=== PATIENT | male | born 1930 | race Caucasian/White ===

== ENCOUNTER 2017-05-01 02:41 | Inpatient (IN) | payer OTHER ==
--- NOTE | 2017-05-01 02:59 | EDPHY ---
H & P Stated Complaint: mechanical fall - unknown down time, denies LOC Time Seen by Provider: 05/01/17 02:47 HPI/ROS: Chief Complaint: Fall HPI: 87-year-old male from [facility] with a history of vascular dementia presenting status post fall. Patient states that he had a mechanical fall. He is complaining of pain in his right thigh. Patient denies hitting his head. No loss of consciousness. Denies any other injuries. He has not been ambulating since the fall. Patient is a poor historian given his dementia. ROS: 10 point Review of Systems is negative except as noted in the HPI. PMH: Dementia Social History: No smoking, no alcohol, no recreational drug use Family History: non-contributory Physical Exam: Gen: Awake, Alert, Airway Intact HEENT: Head: Atraumatic Eyes: PERRLA, EOMI Nose: No epistaxis Mouth: Normal dentition, Airway patent Face: No deformity Neck: non-tender, no stepoff, Full ROM without pain Chest: non-tender, lungs CTA Heart: normal heart tones Abd: soft, non-tender, atraumatic Pelvis: non-tender, stable to AP and Lateral compression Back: atraumatic, no midline tenderness Ext: Arms are negative. Left leg is normal, full range of motion without pain and nontender, patient is holding his right leg in flexion and internal rotation. He is clutching his left proximal thigh. There is no obvious bony deformity. He has decreased range of motion secondary to pain. Knee is nontender. Recheck fevers nontender without deformity. Ankles nontender, full range of motion. He has 2+ dorsalis pedis pulses. Capillary refills less than 2 seconds. Skin: no rash Neuro: CN II-XII intact, Strength 5/5 in all extremities, sensation intact in all extremities - Personal History Current Tetanus/Diphtheria Vaccine: Unsure - Medical/Surgical History Hx Asthma: No Hx Chronic Respiratory Disease: No Hx Diabetes: No Hx Cardiac Disease: No Hx Renal Disease: No Hx Cirrhosis: No Hx Alcoholism: No Hx HIV/AIDS: No Other PMH: dementia, HTN - Social History Smoking Status: Unknown if ever smoked Constitutional: Initial Vital Signs Temperature (C) 36.7 C 05/01/17 02:51 Heart Rate 53 L 05/01/17 02:51 Respiratory Rate 20 05/01/17 02:51 Blood Pressure 167/74 H 05/01/17 02:51 O2 Sat (%) 99 05/01/17 02:51 O2 Delivery Mode Room Air Allergies/Adverse Reactions: No Known Allergies Allergy (Unverified 05/01/17 02:55) Home Medications: Medication Instructions Recorded Exelon 05/01/17 Melatonin 05/01/17 VENLAFAXINE HCL 05/01/17 Medical Decision Making - Diagnostics Imaging Results: Right hip x-ray shows a deformity of the lesser trochanter with questionable cortical involvement. Per my interpretation. CT scan of the right hip shows a comminuted intertrochanteric fracture per Dr. Barrera. ED Course/Re-evaluation: 87-year-old male status post mechanical fall with right hip fracture. I have discussed with Dr. Barba, hospitalist. He will admit to his service. I have paged Dr. Argueta, orthopedics. Patient's pain is controlled not required medicine here. Chest x-ray, ECG, and bloods have been ordered. - Data Points Medications Given: Discontinued Medications Ondansetron HCl (Zofran) 4 mg IVP EDNOW ONE Stop: 05/01/17 04:46 Last Admin: 05/01/17 04:45 Dose: 4 mg Departure - Departure Disposition: [facility] Inpatient Acute Clinical Impression: Hip fracture Condition: Fair Referrals: Rainer Galeas MD [Primary Care Provider] - As per Instructions
[2017-05-01] MEDS ORDERED: ONDANSETRON 4 MG/2 ML VIAL ONE ×2 (04:42→16:40)
[2017-05-01] MEDS ORDERED: ONDANSETRON 4 MG/2 ML VIAL IVP ONE (04:45)
[2017-05-01] MEDS ORDERED: ONDANSETRON 4 MG/2 ML VIAL IVP PRN ×2 (05:14→21:01)
[2017-05-01] MEDS ORDERED: ACETAMINOPHEN 325 MG TAB PO PRN (05:14)
[2017-05-01] MEDS ORDERED: oxyCODONE IR 5 MG TAB PO PRN (05:14)
[2017-05-01] MEDS ORDERED: ONDANSETRON DISINTEGRATING 4 MG TAB PO PRN (05:14)
--- NOTE | 2017-05-01 05:30 | CPEKG ---
Heart Rate: 51 RR Interval: 1176 P-R Interval: 192 QRSD Interval: 160 QT Interval: 500 QTC Interval: 461 P [place]: 50 QRS [place]: 109 T Wave [place]: 10 EKG Severity - ABNORMAL ECG - EKG Impression: SINUS RHYTHM EKG Impression: RBBB AND LPFB Electronically Signed By: Loy Granados 01-May-2017 06:24:23
[2017-05-01 05:32] LABS: PLATELET COUNT 199 10^3/uL (150-400)
--- NOTE | 2017-05-01 06:00 | PDGENHP ---
History and Physical - Chief Complaint Fall, hip fracture - History of Present Illness 87 yo M w/ dementia presents from SNF after fall. Upon arrival to the ED he was found to have a R-sided hip fracture. Patient has fairly advanced dementia and is not able to participate in HPI significantly. He is A&Ox1 on my evaluation and complaining only of R hip pain. He remembers falling while trying to roll out of bed at his nursing facility, denies LOC. History Information - Allergies/Home Medication List Allergies/Adverse Reactions: No Known Allergies Allergy (Unverified 05/01/17 02:55) Home Medications: Exelon 05/01/17 [Last Taken Unknown] Melatonin 05/01/17 [Last Taken Unknown] VENLAFAXINE HCL 05/01/17 [Last Taken Unknown] I have personally reviewed and updated: family history, medical history - Past Medical History dementia - Family History Additional family history: Asked, unable to provide - Social History Smoking Status: Unknown if ever smoked Review of Systems Review of Systems: ROS: 10pt was reviewed & negative except for what was stated in HPI & below Physical Exam Physical Exam: Temp Pulse Resp BP Pulse Ox 36.6 C 53 L 18 124/69 H 96 05/01/17 05:55 05/01/17 05:55 05/01/17 05:55 05/01/17 05:55 05/01/17 05:55 Constitutional: no apparent distress, chronically ill appearing Eyes: PERRL, anicteric sclera Ears, Nose, Mouth, Throat: moist mucous membranes, no oral mucosal ulcers Cardiovascular: regular rate and rhythym, no murmur, rub, or gallop Respiratory: no respiratory distress, no rales or rhonchi Gastrointestinal: normoactive bowel sounds, soft, non-tender abdomen Skin: warm, normal color Musculoskeletal: other (TTP overlying R hip) Neurologic: sensation intact bilaterally, other (A&Ox1) Psychiatric: poor insight, poor memory Lab Data & Imaging Review 05/01/17 05:18 05/01/17 05:18 WBC 10.52 10^3/uL (3.80-9.50) H 05/01/17 05:18 RBC 4.03 10^6/uL (4.40-6.38) L 05/01/17 05:18 Hgb 13.4 g/dL (13.7-17.5) L 05/01/17 05:18 Hct 38.7 % (40.0-51.0) L 05/01/17 05:18 MCV 96.0 fL (81.5-99.8) 05/01/17 05:18 MCH 33.3 pg (27.9-34.1) 05/01/17 05:18 MCHC 34.6 g/dL (32.4-36.7) 05/01/17 05:18 RDW 13.4 % (11.5-15.2) 05/01/17 05:18 Plt Count 199 10^3/uL (150-400) 05/01/17 05:18 MPV 10.3 fL (8.7-11.7) 05/01/17 05:18 Neut % (Auto) 69.7 % (39.3-74.2) 05/01/17 05:18 Lymph % (Auto) 21.2 % (15.0-45.0) 05/01/17 05:18 Kimble % (Auto) 6.5 % (4.5-13.0) 05/01/17 05:18 Eos % (Auto) 1.8 % (0.6-7.6) 05/01/17 05:18 Baso % (Auto) 0.4 % (0.3-1.7) 05/01/17 05:18 Nucleat RBC Rel Count 0.0 % (0.0-0.2) 05/01/17 05:18 Absolute Neuts (auto) 7.34 10^3/uL (1.70-6.50) H 05/01/17 05:18 Absolute Lymphs (auto) 2.23 10^3/uL (1.00-3.00) 05/01/17 05:18 Absolute Monos (auto) 0.68 10^3/uL (0.30-0.80) 05/01/17 05:18 Absolute Eos (auto) 0.19 10^3/uL (0.03-0.40) 05/01/17 05:18 Absolute Basos (auto) 0.04 10^3/uL (0.02-0.10) 05/01/17 05:18 Absolute Nucleated RBC 0.00 10^3/uL (0-0.01) 05/01/17 05:18 Immature Gran % 0.4 % (0.0-1.1) 05/01/17 05:18 Immature Gran # 0.04 10^3/uL (0.00-0.10) 05/01/17 05:18 Sodium 142 mEq/L (134-144) 05/01/17 05:18 Potassium 5.3 mEq/L (3.5-5.2) H 05/01/17 05:18 Chloride 100 mEq/L (97-110) 05/01/17 05:18 Carbon Dioxide 25 mEq/l (22-31) 05/01/17 05:18 Anion Gap 17 mEq/L (8-16) H 05/01/17 05:18 BUN 16 mg/dL (7-23) 05/01/17 05:18 Creatinine 0.7 mg/dL (0.7-1.3) 05/01/17 05:18 Estimated GFR > 60 05/01/17 05:18 Glucose 90 mg/dL (70-100) 05/01/17 05:18 Calcium 9.5 mg/dL (8.5-10.4) 05/01/17 05:18 Specimen Hemolysis 189 05/01/17 05:18 Imaging Review: Comminuted RT intertrochanter fx w/ min displaced lesser and greater troch fragments. Assessment & Plan Assessment: 87 yo M w/ dementia presents after fall w/ hip fracture. Plan: 1. R intertrochanteric hip fracture - S/p mechanical fall. Orthopedics consulted in the ED, will see patient this morning. - Maintain NPO - Pain control with morphine and oxycodone PRN 2. Dementia - Appears fairly advanced, although may be worsened by pain medications currently. A&Ox1 on my evaluation. Diet - NPO Code - Full, patient unable to participate in this conversation. Will await clarification from facility and family. Ppx - SCDs Dispo - Admit to observation status pending orthopedic consultation
--- NOTE | 2017-05-01 08:38 | HOSPPROG ---
Hospitalist Progress Note Assessment/Plan: 87 yo M w/ dementia presents after fall w/ hip fracture. *R intertrochanteric hip fracture - S/p mechanical fall. Orthopedics consulted in the ED - Maintain NPO - Pain control with morphine and oxycodone PRN *gait instability *dementia -fairly advanced *Hyperkalemia -repeat labs in a.m -ordered IV normal saline *Plan: likely OR later today/ will get repeat labs in a.m. / He will require > 2 midnight stay due to the above/ will likely be in OR today Subjective: Antonio is confused/ no c/o pain until I palpated his hip. Objective: Vital Signs Temp Pulse Resp BP Pulse Ox 36.6 C 56 L 16 140/62 H 97 05/01/17 07:15 05/01/17 07:15 05/01/17 07:15 05/01/17 07:15 05/01/17 07:15 Laboratory Results 05/01/17 05:18 05/01/17 05:18 - Physical Exam Constitutional: chronically ill appearing, uncomfortable, other (thin) Ears, Nose, Mouth, Throat: hearing normal Cardiovascular: regular rate and rhythym Respiratory: no respiratory distress Gastrointestinal: normoactive bowel sounds Skin: warm Musculoskeletal: other (right leg shortened) Neurologic: other (alert, but confused) Psychiatric: poor judgement, poor memory ICD10 Worksheet Patient Problems: Problems Problem Status Onset Hip fracture Acute
[2017-05-01] MEDS ORDERED: CYANO/VITAMIN B12 1000 MCG TAB ONE (10:51)
[2017-05-01] MEDS: VENLAFAXINE HCL 25 MG TAB PO SCH ×2 (10:53→23:37)
[2017-05-01] MEDS: CYANO/VITAMIN B12 1000 MCG TAB PO SCH (10:53)
[2017-05-01] MEDS: Rivastigmine [Exelon 4.6mg/24 Hours] 1 EACH TD SCH ×2 (11:02→13:15)
[2017-05-01] MEDS: NS 1,000 ML IV SCH (12:16)
[2017-05-01] MEDS ORDERED: BUPIVACAINE 0.5% 30 ML SDV ONE (16:28)
[2017-05-01] MEDS ORDERED: LR 1,000 ML IV ONE (16:33)
[2017-05-01] MEDS ORDERED: PROPOFOL 200 MG/20 ML VIAL ONE (16:39)
[2017-05-01] MEDS ORDERED: fentaNYL 100 MCG/2 ML INJ ONE (16:39)
[2017-05-01] MEDS ORDERED: DEXAMETHASONE 4 MG/ML VIAL ONE (16:40)
[2017-05-01] MEDS ORDERED: ROCURONIUM 50 MG/5 ML VIAL ONE (16:40)
[2017-05-01] MEDS ORDERED: LIDOCAINE 2% 5 ML SDV ONE (16:40)
--- NOTE | 2017-05-01 16:52 | PDANEPAE ---
ANE History of Present Illness 87M w/ hip fx, h/o dementia ANE Past Medical History - Cardiovascular History Hx Hypertension: Yes Hx Arrhythmias: No Hx Chest Pain: No Hx Coronary Artery / Peripheral Vascular Disease: No Hx CHF / Valvular Disease: No Hx Palpitations: No - Pulmonary History Hx COPD: No Hx Asthma/Reactive Airway Disease: No Hx Recent Upper Respiratory Infection: No Hx Oxygen in Use at Home: No Hx Sleep Apnea: No Sleep Apnea Screening Result - Last Documented: Positive - Neurologic History Hx Dementia: Yes - Endocrine History Hx Diabetes: No Hypothyroid: No Hyperthyroid: No Obesity: no ANE Review of Systems Review of systems is: negative Review of Systems: - Exercise capacity Exercise capacity: >=4 METS ANE Patient History - Allergies Allergies/Adverse Reactions: No Known Allergies Allergy (Unverified 05/01/17 02:55) - Home Medications Home medications: home medication list seen and reviewed Home Medications: Cholecalciferol Vit D3 [Vitamin D3 (*)] 50,000 unit PO Q30D 05/01/17 [Last Taken 04/14/17] Cyanocobalamin [Vitamin B12 (*)] 1,000 mcg PO DAILY 05/01/17 [Last Taken ] Melatonin [Melatonin 5 mg] 5 mg PO HS 05/01/17 [Last Taken 04/30/17] Rivastigmine [Exelon 4.6mg/24 hours] 1 each TD DAILY 05/01/17 [Last Taken ] Venlafaxine HCl [Venlafaxine 25MG (*)] 50 mg PO BID 05/01/17 [Last Taken 21:00] - NPO status NPO Since - Liquids (Date): 05/01/17 NPO Since - Liquids (Time): 06:30 NPO Since - Solids (Date): 05/01/17 NPO Since - Solids (Time): 06:30 - Anes Hx Anes Hx: no prior problems - Smoking Hx Smoking Status: Unknown if ever smoked ANE Labs/Vital Signs - Labs Result Diagrams: 05/01/17 05:18 05/01/17 05:18 - Vital Signs Blood Pressure: 178/82 Heart Rate: 61 Respiratory Rate: 16 O2 Sat (%): 94 Height: 170.18 cm Weight: 64 kg ANE Physical Exam - Airway Neck exam: FROM Mallampati Score: Class 2 Mouth exam: normal dental/mouth exam - Pulmonary Pulmonary: no respiratory distress - Cardiovascular Cardiovascular: regular rate and rhythym - ASA Status ASA Status: III ANE Anesthesia Plan Anesthesia Plan: general endotracheal anesthesia
--- NOTE | 2017-05-01 17:04 | ASMTCMCOM ---
CM Note CM Note Notes: Pt admitted with hip fx after fall. Hx dementia. Surgery planned. CM will follow for any d/c needs. Date Signed: 05/01/2017 05:03 PM Electronically Signed By:LEANDER Sierra
[2017-05-01] MEDS ORDERED: ceFAZolin 1 GM VIAL ONE ×2 (20:17)
--- NOTE | 2017-05-01 20:56 | POSTOPPROG ---
Post Op Note Date of Operation: 05/01/17 Surgeon: Miky Argueta Pre-op Diagnosis: R pertrochanteric femur fx Post-op Diagnosis: Same Procedure: R TFN Inf/Abcess present in the surg proc area at time of surgery?: No EBL: 50-100
[2017-05-01] MEDS ORDERED: ACETAMINOPHEN 500 MG TAB PO PRN (21:01)
[2017-05-01] MEDS ORDERED: LR 500 ML IV PRN (21:01)
[2017-05-01] MEDS ORDERED: ALBUTEROL 3 ML DEYVIAL IH PRN (21:01)
[2017-05-01] MEDS ORDERED: NALOXONE HCL 0.4 MG/ML INJ IVP PRN (21:01)
[2017-05-01] MEDS ORDERED: METOCLOPRAMIDE 10 MG/2 ML VIAL IVP PRN (21:01)
[2017-05-01] MEDS ORDERED: PROMETHAZINE HCL 25 MG/ML INJ IVP PRN (21:01)
[2017-05-01] MEDS ORDERED: ENALAPRILAT DIHYDRATE 1.25 MG/ML VIAL IVP PRN (21:01)
[2017-05-01] MEDS ORDERED: OXYCODONE/APAP 5/325 TAB PO PRN (21:01)
[2017-05-01] MEDS ORDERED: LABETALOL HCL 50 MG/10 ML SYR IVP PRN (21:01)
[2017-05-01] MEDS ORDERED: fentaNYL 100 MCG/2 ML INJ IVP PRN (21:01)
--- NOTE | 2017-05-01 21:01 | POSTANESTH ---
Post Anesthetic Evaluation Cardiovascular Status: Normal, Stable Respiratory Status: Normal, Stable Level of Consciousness/Mental Status: Can Participate in Eval Pain Control: Adequate, Prn Tx Ordered Nausea/Vomiting Control: Adequate, Prn Tx Ordered Complications Possibly Related to Anesthesia: None Noted
[2017-05-01] MEDS ORDERED: LABETALOL HCL 5 MG/ML 20 ML MDV ONE (21:27)
[2017-05-01] MEDS: MELATONIN 3 MG TAB PO SCH (23:36)
[2017-05-01] MEDS: D5W 1/2 NS W/ 20 KCl/L 1,000 ML IV SCH (23:48)
--- NOTE | 2017-05-02 04:20 | GCON ---
[f rep st] CONSULTATION REASON FOR CONSULTATION: Right hip pain. HISTORY RELATIVE TO CONSULTATION: The patient is an 87-year-old household ambulator who sustained a fall resulting in right hip pain. Clinically and radiographically he is noted to have a right peritr ochanteric femur fracture. PHYSICAL EXAMINATION: EXTREMITIES: His right hip was tender and swollen. He had diffuse tenderness about this region. His distal neurovascular exam was intact. Limited motion produced pain. IMAGING DATA: AP and lateral radiographs showed a peritrochanteric right femur fracture. ASSESSMENT: Right peritrochanteric femur fracture. PLAN: It is recommended that operative treatment consisting of intramedullary fixation (trochanteric fixation nail) be pursued. This will be performed as soon as patient is medically stable. /[id number]/MODL
--- NOTE | 2017-05-02 05:10 | GOP ---
[f rep st] OPERATIVE REPORT DATE OF OPERATION: SURGEON: Miky Argueta MD ANESTHESIA: General. PREOPERATIVE DIAGNOSIS: Right peritrochanteric femur fracture. POSTOPERATIVE DIAGNOSIS: Right peritrochanteric femur fracture. PROCEDURE PERFORMED: 1. Intramedullary nail fixation right peritrochanteric femur fracture (trochanteric for fixation candy l). 2. Intraoperative use of fluoroscopy. FINDINGS: ESTIMATED BLOOD LOSS: Minimal. INDICATIONS: The patient is an 87-year-old household ambulator, who has taken a fall resulting in a right peritrochanteric femur fracture. Based on the unstable nature of his injury and the need to ge t the patient out of bed ambulating to minimize risk of medical problems, it was recommended that ope rative treatment consisting of an intramedullary nail fixation be pursued. The patient's daughter ac knowledged she understood the potential risks, including but not limited to, bleeding, infection, diogenes rovascular damage, loss of limb or limb function, malunion, nonunion, need for hardware removal, pain or functional limitations despite operative treatment, and anesthetic risks. She gave consent that she is the legal guardian. DESCRIPTION OF PROCEDURE: The patient was brought to the operating room after IV antibiotics were ad ministered. He was placed in a supine position where general anesthetic was administered. He was tr ansferred to a radiolucent traction table. The right foot was placed in a well-padded traction boot. The left leg in a well padded well leg burciaga. Fluoroscopic views were obtained which confirmed fa vorable reduction. The right hip and thigh were prepped and draped in standard sterile fashion. A s mall incision was made proximal to the tip of the greater trochanter. A guide pin from the trochante filomena fixation nail was placed in the optimal position in the tip of the greater trochanter. Guide pin position was confirmed and the guide pin was advanced. The starting reamer was utilized to create a hole. A ball-tipped guide mary jo was placed down the intramedullary canal. 11 and 12 mm reamers were easily passed. After measuring nail length and an 11 mm x 420 mm trochanteric fixation nail was easi ly passed without impaction with a mallet. The guide pin for the spiral blade was placed through the aiming guide into the central aspect of the femoral head on both AP and lateral planes. After drill ing with the step drill, a 95 mm spiral blade was placed and locked into place. Fluoroscopic views c onfirmed optimal position. A distal locking bolt to control rotation was then placed under a freehan d technique. The subcutaneous tissue was closed with 3-0 Vicryl suture in interrupted fashion. Skin merissa were placed in the skin. The wounds were dressed with sterile Adaptic, 4 x 4, and ABD. The patient was taken to the recovery room, extubated, in stable condition postoperatively. All sponge, needle, and instrument counts were reported as being correct. DRAINS: None. COMPLICATIONS: None. PLAN: Patient would be admitted for medical management. He will be weightbearing as tolerated on hi s operative extremity. /[id number]/MODL
[2017-05-02 05:50] LABS: PLATELET COUNT 163 10^3/uL (150-400)
--- NOTE | 2017-05-02 06:01 | SOAPPROG ---
SOAP Progress Note Assessment/Plan: Assessment: S/P R TFN Resting Comfortable Dressing intact, No D/C Limb lengths/ rotation equal Distal NVI Plan: OOB/PT OK from ortho standpoint for D/C when medically stable F/U 1 month 05/02/17 06:00 Objective: Vital Signs Temp Pulse Resp BP Pulse Ox 37.0 C 72 18 165/80 H 98 05/02/17 04:00 05/02/17 04:00 05/02/17 04:00 05/02/17 04:00 05/02/17 04:00 Laboratory Results 05/02/17 05:03 05/02/17 05:03 05/01/17 05/02/17 05/03/17 05:59 05:59 05:59 Intake Total 1700 Output Total 350 Balance 1350 ICD10 Worksheet Patient Problems: Problems Problem Status Onset Hip fracture Acute
--- NOTE | 2017-05-02 06:03 | PDIAF ---
- Diagnosis Code Status: Do Not Resuscitate - Medication Management Discharge Medications: Medications to Continue on Transfer Cholecalciferol Vit D3 [Vitamin D3 (*)] 50,000 unit PO Q30D 05/01/17 [Last Taken 04/14/17] Cyanocobalamin [Vitamin B12 (*)] 1,000 mcg PO DAILY 05/01/17 [Last Taken ] Melatonin [Melatonin 5 mg] 5 mg PO HS 05/01/17 [Last Taken 04/30/17] Rivastigmine [Exelon 4.6mg/24 hours] 1 each TD DAILY 05/01/17 [Last Taken ] Venlafaxine HCl [Venlafaxine 25MG (*)] 50 mg PO BID 05/01/17 [Last Taken 21:00] Discharge Medications: Refer to the Discharge Home Medication list for PRN reason. - Orders Date to Remove Sutures/[place]: 05/10/17 Activity/Weight Bearing Restrictions: Weight bear as tolerated - Follow Up Care Current Providers and Referrals: Rainer Galeas MD [Primary Care Provider] - As per Instructions
--- NOTE | 2017-05-02 06:03 | PDIAF ---
- Diagnosis Code Status: Do Not Resuscitate - Medication Management Discharge Medications: Medications to Continue on Transfer Cholecalciferol Vit D3 [Vitamin D3 (*)] 50,000 unit PO Q30D 05/01/17 [Last Taken 04/14/17] Cyanocobalamin [Vitamin B12 (*)] 1,000 mcg PO DAILY 05/01/17 [Last Taken ] Melatonin [Melatonin 5 mg] 5 mg PO HS 05/01/17 [Last Taken 04/30/17] Rivastigmine [Exelon 4.6mg/24 hours] 1 each TD DAILY 05/01/17 [Last Taken ] Venlafaxine HCl [Venlafaxine 25MG (*)] 50 mg PO BID 05/01/17 [Last Taken 21:00] Discharge Medications: Refer to the Discharge Home Medication list for PRN reason. - Orders Date to Remove Sutures/[place]: 05/10/17 Activity/Weight Bearing Restrictions: Weight bear as tolerated - Follow Up Care Current Providers and Referrals: Rainer Galeas MD [Primary Care Provider] - As per Instructions
--- NOTE | 2017-05-02 06:03 | PDIAF ---
- Diagnosis Code Status: Do Not Resuscitate - Medication Management Discharge Medications: Medications to Continue on Transfer Cholecalciferol Vit D3 [Vitamin D3 (*)] 50,000 unit PO Q30D 05/01/17 [Last Taken 04/14/17] Cyanocobalamin [Vitamin B12 (*)] 1,000 mcg PO DAILY 05/01/17 [Last Taken ] Melatonin [Melatonin 5 mg] 5 mg PO HS 05/01/17 [Last Taken 04/30/17] Rivastigmine [Exelon 4.6mg/24 hours] 1 each TD DAILY 05/01/17 [Last Taken ] Venlafaxine HCl [Venlafaxine 25MG (*)] 50 mg PO BID 05/01/17 [Last Taken 21:00] Discharge Medications: Refer to the Discharge Home Medication list for PRN reason. - Orders Date to Remove Sutures/[place]: 05/10/17 Activity/Weight Bearing Restrictions: Weight bear as tolerated - Follow Up Care Current Providers and Referrals: Rainer Galeas MD [Primary Care Provider] - As per Instructions
[2017-05-02] MEDS: Rivastigmine [Exelon 4.6mg/24 Hours] 1 EACH TD SCH (09:30)
--- NOTE | 2017-05-02 09:39 | HOSPPROG ---
Hospitalist Progress Note Assessment/Plan: 87 yo M w/ dementia presents after fall w/ hip fracture. *R radha-intertrochanteric hip fracture status post intramedullary nail fixation -right hip femur area somewhat swollen this morning. Asked nursing staff to place ice -will avoid narcotics and placed on scheduled Tylenol due to his advanced dementia *gait instability -physical therapy and occupational therapy to see * leukocytosis -likely stress induced will recheck labs in the morning * anemia, mild -will follow *dementia -fairly advanced *Hyperkalemia -resolved with fluids *Plan: Nursing staff evaluate evaluating to see if he can swallow okay. If he can to DC the IV fluids. Will continued scheduled Tylenol to keep his pain well managed and very low-dose narcotics. Will get repeat labs in the morning Subjective: Antonio has no complaints. Objective: Vital Signs Temp Pulse Resp BP Pulse Ox 36.8 C 69 12 123/65 H 96 05/02/17 08:01 05/02/17 08:01 05/02/17 08:01 05/02/17 08:01 05/02/17 08:01 Laboratory Results 05/02/17 05:03 05/02/17 05:03 05/01/17 05/02/17 05/03/17 05:59 05:59 05:59 Intake Total 2200 Output Total 350 Balance 1850 - Physical Exam Constitutional: chronically ill appearing, uncomfortable Eyes: PERRL Ears, Nose, Mouth, Throat: hearing normal Cardiovascular: regular rate and rhythym Respiratory: no respiratory distress Skin: warm, other (Right hip with dressing in place, has some swelling) Neurologic: other (Patient is alert and oriented only to himself not to place time or situation) Psychiatric: interacting appropriately, not anxious ICD10 Worksheet Patient Problems: Problems Problem Status Onset Hip fracture Acute
[2017-05-02] MEDS ORDERED: BISACODYL 10 MG SUPP PR PRN (09:43)
[2017-05-02] MEDS ORDERED: MAGNESIUM HYDROXIDE 30 ML UDCUP PO PRN (09:43)
[2017-05-02] MEDS ORDERED: LACTULOSE 20 GM/30 ML UDCUP PO PRN (09:43)
[2017-05-02] MEDS: oxyCODONE IR 5 MG TAB PO PRN ×2 (10:53→16:24)
[2017-05-02] MEDS: VENLAFAXINE HCL 25 MG TAB PO SCH ×2 (11:03→22:05)
[2017-05-02] MEDS: CYANO/VITAMIN B12 1000 MCG TAB PO SCH (11:03)
[2017-05-02] MEDS: D5W 1/2 NS W/ 20 KCl/L 1,000 ML IV SCH (12:14)
--- NOTE | 2017-05-02 14:49 | PDMN ---
Medical Necessity Medical necessity: Change to IP as of 05/01/17; los >2 mn for eval/tx of R hip fx r/t fall, gait instability, advanced dementia, hyperkalemia; s/p IM nail fixation; per progress note 05/01/17
[2017-05-02] MEDS: ACETAMINOPHEN 500 MG TAB PO SCH ×2 (16:11→22:06)
[2017-05-02] MEDS: NS 1,000 ML IV SCH (16:33)
[2017-05-02] MEDS: HALOPERIDOL LACT 5 MG/ML INJ IVP PRN (18:56)
[2017-05-02] MEDS: SENNOSIDES/DOCUSATE SODIUM TAB PO SCH (22:05)
[2017-05-02] MEDS: MELATONIN 3 MG TAB PO SCH (22:06)
[2017-05-03] MEDS: NS 1,000 ML IV SCH (02:06)
[2017-05-03 05:34] LABS: PLATELET COUNT 141 10^3/uL (150-400)
--- NOTE | 2017-05-03 05:59 | SOAPPROG ---
SOAP Progress Note Assessment/Plan: Assessment: S/P R TFN Resting Comfortable Dressing intact, No D/C Limb lengths/ rotation equal Distal NVI Plan: OOB/PT OK from ortho standpoint for D/C when medically stable F/U 1 month 05/02/17 06:00 05/03/17 05:58 Somewhat restless night. Currently resting comfortably Dressing intact NV Unchanged Leg length/rotation equal OOB/PT SNF transfer when medically OK Objective: Vital Signs Temp Pulse Resp BP Pulse Ox 37.0 C 81 16 131/64 H 95 05/02/17 15:56 05/02/17 15:56 05/02/17 15:56 05/02/17 15:56 05/02/17 15:56 Laboratory Results 05/03/17 04:46 05/03/17 04:46 05/01/17 05/02/17 05/03/17 05:59 05:59 05:59 Intake Total 2200 0 Output Total 350 Balance 1850 0 ICD10 Worksheet Patient Problems: Problems Problem Status Onset Hip fracture Acute
[2017-05-03] MEDS: ACETAMINOPHEN 500 MG TAB PO SCH ×4 (08:34→19:54)
[2017-05-03] MEDS: POLYETHYLENE GLYCOL 3350 17 GM PKT PO SCH (10:23)
[2017-05-03] MEDS: VENLAFAXINE HCL 25 MG TAB PO SCH ×3 (10:24→19:57)
[2017-05-03] MEDS: CYANO/VITAMIN B12 1000 MCG TAB PO SCH (10:24)
[2017-05-03] MEDS: Rivastigmine [Exelon 4.6mg/24 Hours] 1 EACH TD SCH (10:25)
[2017-05-03] MEDS: SENNOSIDES/DOCUSATE SODIUM TAB PO SCH ×3 (10:25→19:56)
--- NOTE | 2017-05-03 10:49 | ASMTCMCOM ---
CM Note CM Note Notes: PT recommending SNF so that pt can get daily therapy in hopes of getting back to his baseline of independant mobility. Pt lives at [facility] and has fairly progressed dementia. D/W dtr who has spoken w/NOLBERTO at [facility] and I also spoke w/Dasia at [facility] who confirmed that they are recommending SNF prior to pt's return to [facility]; dtr, Jessy is in agreement with this and would like for her Dad to go to [facility]. Referral sent to and notified Tiffanie. Pt needed sitter last night but has not needed one today- informed tiffanie of this. He also wears tracking device which was set up through [place] [employer] [facility] [employer] de[employer]. Date Signed: 05/03/2017 10:49 AM Electronically Signed By:Francine Morgan RN
--- NOTE | 2017-05-03 10:49 | ASMTCMCOM ---
CM Note CM Note Notes: PT recommending SNF so that pt can get daily therapy in hopes of getting back to his baseline of independant mobility. Pt lives at [facility] and has fairly progressed dementia. D/W dtr who has spoken w/NOLBERTO at [facility] and I also spoke w/Dasia at [facility] who confirmed that they are recommending SNF prior to pt's return to [facility]; dtr, Jessy is in agreement with this and would like for her Dad to go to [facility]. Referral sent to and notified Tiffanie. Pt needed sitter last night but has not needed one today- informed tiffanie of this. He also wears tracking device which was set up through [employer] dept. Date Signed: 05/03/2017 10:49 AM Electronically Signed By:Francine Morgan RN
--- NOTE | 2017-05-03 10:49 | ASMTCMCOM ---
CM Note CM Note Notes: PT recommending SNF so that pt can get daily therapy in hopes of getting back to his baseline of independant mobility. Pt lives at [facility] and has fairly progressed dementia. D/W dtr who has spoken w/NOLBERTO at [place] and I also spoke w/Dasia at [place] who confirmed that they are recommending SNF prior to pt's return to [facility]; dtr, Jessy is in agreement with this and would like for her Dad to go to [facility]. Referral sent to and notified Tiffanie. Pt needed sitter last night but has not needed one today- informed tiffanie of this. He also wears tracking device which was set up through [employer] dept. Date Signed: 05/03/2017 10:49 AM Electronically Signed By:Francine Morgan RN
--- NOTE | 2017-05-03 13:38 | HOSPPROG ---
Hospitalist Progress Note Assessment/Plan: 87 yo M w/ dementia presents after fall w/ hip fracture. First encounter, chart reviewed. D/W CM *R radha-intertrochanteric hip fracture status post intramedullary nail fixation -stable -will avoid narcotics and placed on scheduled Tylenol due to his advanced dementia *gait instability -physical therapy and occupational therapy to see * leukocytosis -likely stress induced -no signs of infection -will follow * anemia, mild -will follow *dementia -fairly advanced *Hyperkalemia -resolved with fluids *Plan: Will continued scheduled Tylenol to keep his pain well managed and very low- dose narcotics. Needs SNF D/W CM Subjective: Confused. No pain. Difficult to answer questions. Objective: Vital Signs Temp Pulse Resp BP Pulse Ox 36.7 C 71 16 110/50 L 94 05/03/17 11:27 05/03/17 12:00 05/03/17 12:00 05/03/17 12:00 05/03/17 12:00 Laboratory Results 05/03/17 04:46 05/03/17 04:46 05/02/17 05/03/17 05/04/17 05:59 05:59 05:59 Intake Total 2200 0 Output Total 350 Balance 1850 0 - Physical Exam Constitutional: appears nourished, not in pain, chronically ill appearing Eyes: PERRL, anicteric sclera, EOMI Ears, Nose, Mouth, Throat: moist mucous membranes, hearing normal, ears appear normal Cardiovascular: regular rate and rhythym, No JVD, No edema Respiratory: no respiratory distress, no rales or rhonchi, reduced air movement Gastrointestinal: No tenderness, No ascites, No distension Skin: warm, normal color, erythema Musculoskeletal: joint tenderness, pain with ROM, generalized weakness Neurologic: No AAOx3 Psychiatric: not anxious, poor insight, poor judgement, poor memory ICD10 Worksheet Patient Problems: Problems Problem Status Onset Hip fracture Acute
--- NOTE | 2017-05-03 15:40 | ASMTCMCOM ---
CM Note CM Note Notes: Rec'd call from Susana at [facility] and they are able to accept pt. PASRR done and faxed to [facility]. Met w/pt and dtr to discuss. Date Signed: 05/03/2017 03:39 PM Electronically Signed By:Francine Morgan RN
--- NOTE | 2017-05-03 15:40 | ASMTCMCOM ---
CM Note CM Note Notes: Rec'd call from Susana at [facility] and they are able to accept pt. PASRR done and faxed to [facility]. Met w/pt and dtr to discuss. Date Signed: 05/03/2017 03:39 PM Electronically Signed By:Francine Morgan RN
--- NOTE | 2017-05-03 15:40 | ASMTCMCOM ---
CM Note CM Note Notes: Rec'd call from Susana at [facility] and they are able to accept pt. PASRR done and faxed to [facility]. Met w/pt and dtr to discuss. Date Signed: 05/03/2017 03:39 PM Electronically Signed By:Francine Morgan RN
[2017-05-03] MEDS: HALOPERIDOL LACT 5 MG/ML INJ IVP PRN (19:39)
[2017-05-03] MEDS: MELATONIN 3 MG TAB PO SCH ×2 (19:52→19:56)
[2017-05-04] MEDS: POLYETHYLENE GLYCOL 3350 17 GM PKT PO SCH (11:23)
[2017-05-04] MEDS: ACETAMINOPHEN 500 MG TAB PO SCH ×3 (11:25→22:41)
[2017-05-04] MEDS: CYANO/VITAMIN B12 1000 MCG TAB PO SCH (11:29)
[2017-05-04] MEDS: VENLAFAXINE HCL 25 MG TAB PO SCH ×2 (11:29→19:52)
[2017-05-04] MEDS: SENNOSIDES/DOCUSATE SODIUM TAB PO SCH ×2 (11:30→19:52)
[2017-05-04] MEDS: Rivastigmine [Exelon 4.6mg/24 Hours] 1 EACH TD SCH (11:35)
--- NOTE | 2017-05-04 14:12 | HOSPPROG ---
Hospitalist Progress Note Assessment/Plan: 87 yo M w/ dementia presents after fall w/ hip fracture. D/W CM *R radha-intertrochanteric hip fracture status post intramedullary nail fixation -stable -will avoid narcotics and placed on scheduled Tylenol due to his advanced dementia *gait instability -physical therapy and occupational therapy to see * leukocytosis -likely stress induced -no signs of infection -will follow * anemia, mild -will follow *dementia -advanced *Hyperkalemia -resolved with fluids *Plan: Will continued scheduled Tylenol to keep his pain well managed and very low- dose narcotics. Needs SNF D/W CM Subjective: No issues. Some discomfort in hip. Objective: Vital Signs Temp Pulse Resp BP Pulse Ox 36.8 C 69 17 120/60 92 05/04/17 12:19 05/04/17 12:19 05/04/17 12:19 05/04/17 12:19 05/04/17 12:19 Laboratory Results 05/03/17 04:46 05/03/17 04:46 05/03/17 05/04/17 05/05/17 05:59 05:59 05:59 Intake Total 0 Balance 0 - Physical Exam Constitutional: no apparent distress, appears nourished Eyes: PERRL, anicteric sclera Ears, Nose, Mouth, Throat: moist mucous membranes, hearing normal Cardiovascular: No JVD, No edema Respiratory: no respiratory distress, reduced air movement Gastrointestinal: No tenderness, No ascites Skin: warm, normal color Musculoskeletal: pain with ROM, generalized weakness Neurologic: No AAOx3 Psychiatric: not anxious, poor insight, poor judgement, poor memory ICD10 Worksheet Patient Problems: Problems Problem Status Onset Hip fracture Acute
--- NOTE | 2017-05-04 14:54 | ASMTCMCOM ---
CM Note CM Note Notes: Pt not able to dc to [facility] today as he needed a sitter in room during night and this morning, however is not needing a sitter at this time. Discussed w/Susana from [facility] and she said they do have room across from nurses station for him and that we will re evaluate tomorrow. I spoke w/Dasia at [place] ([phone]) who said that if pt were to return to [facility] instead of SNF they would require family to arrange 24 hr executive relations specialist initially. Current plan: DC to [facility] (will see how pt does tonight and reassess tomorrow w/Susana from [facility]) Date Signed: 05/04/2017 02:54 PM Electronically Signed By:Francine Morgan RN
--- NOTE | 2017-05-04 14:54 | ASMTCMCOM ---
CM Note CM Note Notes: Pt not able to dc to [facility] today as he needed a sitter in room during night and this morning, however is not needing a sitter at this time. Discussed w/Susana from [facility] and she said they do have room across from nurses station for him and that we will re evaluate tomorrow. I spoke w/Dasia at [facility] ([phone]) who said that if pt were to return to [facility] instead of SNF they would require family to arrange 24 hr head wrestling coach initially. Current plan: DC to [facility] (will see how pt does tonight and reassess tomorrow w/Susana from [facility]) Date Signed: 05/04/2017 02:54 PM Electronically Signed By:Francine Morgan RN
--- NOTE | 2017-05-04 14:54 | ASMTCMCOM ---
CM Note CM Note Notes: Pt not able to dc to [facility] today as he needed a sitter in room during night and this morning, however is not needing a sitter at this time. Discussed w/Susana from [facility] and she said they do have room across from nurses station for him and that we will re evaluate tomorrow. I spoke w/Dasia at [place] ([phone]) who said that if pt were to return to [place] [facility] instead of SNF they would require family to arrange 24 hr concrete truck driver initially. Current plan: DC to [facility] (will see how pt does tonight and reassess tomorrow w/Susana from [facility]) Date Signed: 05/04/2017 02:54 PM Electronically Signed By:Francine Morgan RN
[2017-05-04] MEDS: MELATONIN 3 MG TAB PO SCH (19:52)
[2017-05-05] MEDS: POLYETHYLENE GLYCOL 3350 17 GM PKT PO SCH (08:43)
[2017-05-05] MEDS: SENNOSIDES/DOCUSATE SODIUM TAB PO SCH (08:44)
[2017-05-05] MEDS: ACETAMINOPHEN 500 MG TAB PO SCH ×2 (08:44→15:30)
[2017-05-05] MEDS: CYANO/VITAMIN B12 1000 MCG TAB PO SCH (08:45)
[2017-05-05] MEDS: VENLAFAXINE HCL 25 MG TAB PO SCH (08:45)
[2017-05-05] MEDS: Rivastigmine [Exelon 4.6mg/24 Hours] 1 EACH TD SCH (08:53)
[2017-05-05] MEDS ORDERED: ENOXAPARIN 30 MG/0.3 ML SYR SC SCH (09:00)
[2017-05-05] MEDS ORDERED: ENOXAPARIN 40 MG/0.4 ML SYR SC SCH (09:00)
--- NOTE | 2017-05-05 11:08 | HOSPPROG ---
Hospitalist Progress Note Assessment/Plan: 87 yo M w/ dementia presents after fall w/ hip fracture. D/W CM *R radha-intertrochanteric hip fracture status post intramedullary nail fixation -stable -will avoid narcotics and placed on scheduled Tylenol due to his advanced dementia *gait instability -physical therapy and occupational therapy to see * leukocytosis -likely stress induced -no signs of infection -will follow * anemia, mild -will follow *dementia -advanced *Hyperkalemia -resolved with fluids *Plan: Will continued scheduled Tylenol to keep his pain well managed and very low- dose narcotics. Needs SNF D/W CM Subjective: Sleeping, arousable. No pain. Objective: Vital Signs Temp Pulse Resp BP Pulse Ox 36.7 C 72 17 122/77 H 95 05/05/17 07:19 05/05/17 07:19 05/05/17 07:19 05/05/17 07:19 05/05/17 07:19 Laboratory Results 05/03/17 04:46 05/03/17 04:46 05/04/17 05/05/17 05/06/17 05:59 05:59 05:59 Intake Total 840 Output Total 300 Balance 540 - Physical Exam Constitutional: not in pain, chronically ill appearing Eyes: PERRL, anicteric sclera Ears, Nose, Mouth, Throat: moist mucous membranes, hearing normal Cardiovascular: No JVD, No edema Respiratory: no respiratory distress, reduced air movement Gastrointestinal: No tenderness, No ascites Skin: warm, normal color Musculoskeletal: pain with ROM, generalized weakness Neurologic: No AAOx3 Psychiatric: not anxious, poor insight, poor judgement, poor memory ICD10 Worksheet Patient Problems: Problems Problem Status Onset Hip fracture Acute
--- NOTE | 2017-05-05 12:38 | PDIAF ---
- Diagnosis Diagnosis: hip fx Code Status: Do Not Resuscitate - Medication Management Discharge Medications: Medications to Continue on Transfer Cholecalciferol Vit D3 [Vitamin D3 (*)] 50,000 unit PO Q30D 05/01/17 [Last Taken 04/14/17] Cyanocobalamin [Vitamin B12 (*)] 1,000 mcg PO DAILY 05/01/17 [Last Taken ] Melatonin [Melatonin 5 mg] 5 mg PO HS 05/01/17 [Last Taken 04/30/17] Rivastigmine [Exelon 4.6mg/24 hours] 1 each TD DAILY 05/01/17 [Last Taken ] Venlafaxine HCl [Venlafaxine 25MG (*)] 50 mg PO BID 05/01/17 [Last Taken 21:00] Acetaminophen [Tylenol ES 500 mg (*)] 1,000 mg PO TID tab 05/05/17 [Last Taken Unknown] Enoxaparin [Lovenox 40 MG (*)] 40 mg SC DAILY syr 05/05/17 [Last Taken Unknown] Polyethylene Glycol 3350 [Miralax 17 gm (*)] 17 gm PO DAILY pkt 05/05/17 [Last Taken Unknown] Sennosides/Docusate Sodium [Senokot-S] 1 - 2 tab PO BID tab 05/05/17 [Last Taken Unknown] oxyCODONE IR [Oxycodone Ir (*)] 2.5 - 5 mg PO Q3HRS PRN tab 05/05/17 [Last Taken Unknown] Discharge Medications: Refer to the Discharge Home Medication list for PRN reason. PICC Care - Routine: N/A - Orders Services needed: Registered Nurse, Physical Therapy, Occupational Therapy Diet Recommendation: no restrictions on diet Diet Texture: Dysphagia 1 - Pureed, [place] Thick Liquids, Meds Crushed in Puree Date to Remove Sutures/Oren: 05/10/17 Activity/Weight Bearing Restrictions: Weight bear as tolerated - Follow Up Care Current Providers and Referrals: Rainer Galeas MD [Primary Care Provider] - As per Instructions Miky Argueta MD [Medical Doctor] - (follow up in 1 month. call for appt)
--- NOTE | 2017-05-05 12:41 | PDIAF ---
- Diagnosis Diagnosis: hip fx Code Status: Do Not Resuscitate - Medication Management Discharge Medications: Medications to Continue on Transfer Cholecalciferol Vit D3 [Vitamin D3 (*)] 50,000 unit PO Q30D 05/01/17 [Last Taken 04/14/17] Cyanocobalamin [Vitamin B12 (*)] 1,000 mcg PO DAILY 05/01/17 [Last Taken ] Melatonin [Melatonin 5 mg] 5 mg PO HS 05/01/17 [Last Taken 04/30/17] Rivastigmine [Exelon 4.6mg/24 hours] 1 each TD DAILY 05/01/17 [Last Taken ] Venlafaxine HCl [Venlafaxine 25MG (*)] 50 mg PO BID 05/01/17 [Last Taken 21:00] Acetaminophen [Tylenol ES 500 mg (*)] 1,000 mg PO TID tab 05/05/17 [Last Taken Unknown] Enoxaparin [Lovenox 40 MG (*)] 40 mg SC DAILY syr 05/05/17 [Last Taken Unknown] Polyethylene Glycol 3350 [Miralax 17 gm (*)] 17 gm PO DAILY pkt 05/05/17 [Last Taken Unknown] Sennosides/Docusate Sodium [Senokot-S] 1 - 2 tab PO BID tab 05/05/17 [Last Taken Unknown] oxyCODONE IR [Oxycodone Ir (*)] 2.5 - 5 mg PO Q3HRS PRN tab 05/05/17 [Last Taken Unknown] Discharge Medications: Refer to the Discharge Home Medication list for PRN reason. PICC Care - Routine: N/A - Orders Services needed: Registered Nurse, Physical Therapy, Occupational Therapy Diet Recommendation: no restrictions on diet Diet Texture: Dysphagia 1 - Pureed, [place] Thick Liquids, Meds Crushed in Puree Date to Remove Sutures/Oren: 05/10/17 Activity/Weight Bearing Restrictions: Weight bear as tolerated - Labs/Radiology CBC w/diff Date: 05/06/17 - Follow Up Care Current Providers and Referrals: Rainer Galeas MD [Primary Care Provider] - As per Instructions Miky Argueta MD [Medical Doctor] - (follow up in 1 month. call for appt)
--- NOTE | 2017-05-05 13:06 | GDS ---
[f rep st] DISCHARGE SUMMARY DISCHARGE DIAGNOSES: 1. Right hip fracture. 2. Gait instability. 3. Leukocytosis. 4. Anemia. 5. Advanced dementia. 6. Hyperkalemia. CONSULTATION: Dr. Argueta of orthopedics. PROCEDURES DONE: Right nail fixation of a femur fracture. HOSPITAL COURSE: The patient is an 87-year-old male, who suffered a mechanical fall. Presents with hip pain, evaluated and diagnosed with: 1. Right hip fracture. During this hospitalization, he had nail fixation of his femur fracture. He has responded well to this intervention. His pain is well controlled. 2. Gait instability. Continue physical therapy and occupational therapy, rehabilitation. 3. Leukocytosis. This has improved with no signs of acute infection. 4. Anemia, this is mild and can have continued evaluation outside the hospital. 5. Dementia, this is the advanced setting. The patient is at his baseline mentation. 6. Hyperkalemia, this resolved with fluid hydration. DISPOSITION: The patient will be discharged to [facility] for further rehabilitation and management. There are no pending studies. FOLLOW UP: Followup will be with Dr. Argueta, as well as the patient's primary care physician. DISCHARGE MEDICATIONS: Please refer to EMR form. I have ordered for the patient to have a CBC drawn on 05/06/2017 for further evaluation of his anemia , as well as his leukocytosis. I spent greater than 35 minutes in the care, coordination, and management of patient's disposition. /[id number]/MODL
--- NOTE | 2017-05-05 13:09 | ASMTCMCOM ---
CM Note CM Note Notes: Chart reivewed. Discussed with Demetria Willoughby, patient is ready for dc . Spoke with Noemí at [facility]. They can accept him. They are to arrange transport per [facility]. We requested a stretcher for his transport. Orders sent via [facility]. RN knows to call report to [facility]. CM to follow if other needs arise. Date Signed: 05/05/2017 01:08 PM Electronically Signed By:Ely Linda RN
--- NOTE | 2017-05-05 13:09 | ASMTCMCOM ---
CM Note CM Note Notes: Chart reivewed. Discussed with Demetria Willoughby, patient is ready for dc . Spoke with Noemí at [facility]. They can accept him. They are to arrange transport per [facility]. We requested a stretcher for his transport. Orders sent via [email or web address]. RN knows to call report to [facility]. CM to follow if other needs arise. Date Signed: 05/05/2017 01:08 PM Electronically Signed By:Ely Linda RN
--- NOTE | 2017-05-05 13:09 | ASMTCMCOM ---
CM Note CM Note Notes: Chart reivewed. Discussed with Demetria Willoughby, patient is ready for dc . Spoke with Noemí at [facility]. They can accept him. They are to arrange transport per [facility]. We requested a stretcher for his transport. Orders sent via [email or web address]. RN knows to call report to [facility]. CM to follow if other needs arise. Date Signed: 05/05/2017 01:08 PM Electronically Signed By:Ely Linda RN
[2017-05-05 16:24] VITALS: BP 125/59; PULSE 69; RESP 15; TEMP 98.2; O2SAT 96
[2017-05-15] MEDS ORDERED: CHOLECALCIFEROL VIT D3 50,000 UNIT CAP PO SCH (09:00)
== END 2017-05-05 17:15 | DRG 482 ==
LOC: EDUNIT# → F3N 06:16 → OBSVTOIN 15:11
PROVIDERS: ADMIT Student in an Organized Health Care Education/Training Program; ATTEND Student in an Organized Health Care Education/Training Program
PROC: 0QS606Z Reposition Right Upper Femur with Intramedullary Internal Fixation Device, Open Approach (ICD-10-PCS; principal; 2017-05-01 16:45)
CPT/HCPCS: 92610-GN; 96374; 97162-GP; 97166-GO; 97530-GO; 97530-GP; 97535-GO; C1713; C1769; G8978-GP-CM; G8979-GP-CL; G8987-GO-CN; G8988-GO-CL; G8996-GN-CK; G8997-GN-CJ; J0690; J1100; J1650; J2405; J2704; J3010; J3490